=== PATIENT | female | born 1955 | race Caucasian/White ===

== ENCOUNTER → 2017-10-15 | Outpatient (CLI) | payer OTHER ==
[~2017-10-15] MED LIST: BUPR100T6 PO; CHOL200026 PO; CYAN500 PO; DULO60CA63 PO; HYDR25TA PO; IBUP-2070 PO; LEVO5TAB13 PO; LISI-617 PO; METF10004 PO; METF500T6 PO; MULT1TAB70 PO; OMEP20TA25 PO; PRIM50TA29 PO; PROP40TA7 PO; PROP80TA4 PO; PSYL0.5215 PO; SIMV10TA6 PO
== END | disposition home or self-care (01) ==
LOC: RAH 13:02
PROVIDERS: ATTEND Family Medicine
DX: Z12.31 Encounter for screening mammogram for malignant neoplasm of breast (principal)
CPT/HCPCS: 77067

== ENCOUNTER 2017-12-14 09:00 | Day surgery (SDC) | payer OTHER ==
[~2017-12-14] VITALS: Ht 170.2 cm; Wt 120.0 kg
[~2017-12-14 09:00] MED LIST changes: -BUPR100T6 PO; -METF10004 PO; -PROP80TA4 PO; +SODIUM CHLORIDE 0.9% 1000ML 1,000 ML IV ONE
[2017-12-14 09:06] VITALS: BP 136/57
[2017-12-14] MEDS ORDERED: PROPOFOL 10 MG/ML 20ML VIAL IV ONE ×3 (10:30→10:45)
[2017-12-14] MEDS ORDERED: SIMETHICONE 40 MG/0.6 ML ML ONE (10:37)
[2017-12-14 10:55] VITALS: BP 93/48
== END 2017-12-14 11:41 | disposition home or self-care (01) ==
LOC: ENDO 09:00 → DAH 09:00 → ENDO 11:41
PROVIDERS: ATTEND Internal Medicine Gastroenterology
DX: D50.8 Other iron deficiency anemias (principal); K21.9 Gastro-esophageal reflux disease without esophagitis; K29.70 Gastritis, unspecified, without bleeding; Z79.899 Other long term (current) drug therapy; I10 Essential (primary) hypertension; E11.9 Type 2 diabetes mellitus without complications; F32.89 Other specified depressive episodes; Z90.49 Acquired absence of other specified parts of digestive tract; Z90.710 Acquired absence of both cervix and uterus; Z68.43 Body mass index [BMI] 50.0-59.9, adult; F50.89 Other specified eating disorder; Z79.84 Long term (current) use of oral hypoglycemic drugs
CPT/HCPCS: 43239; 45378; 82948 ×2; 88305; 88312; A4606; J2704 ×3; J7030

== ENCOUNTER → 2018-12-24 | Outpatient (CLI) | payer OTHER ==
[~2018-12-24] MED LIST changes: +METF-444 PO; -METF500T6 PO; -SODIUM CHLORIDE 0.9% 1000ML 1,000 ML IV ONE
== END | disposition home or self-care (01) ==
LOC: OIH 15:03
PROVIDERS: ATTEND Family Medicine
DX: R05 Cough (principal)
CPT/HCPCS: 71046